=== PATIENT | female | born 1995 | race Caucasian/White ===

== ENCOUNTER 2018-06-25 15:31 | Emergency (ER) | payer OTHER ==
[2018-06-25 15:48] VITALS: BP 137/71
--- NOTE | 2018-06-25 16:34 | ER Document Report ---
ED Medical Screen (RME) - General Chief Complaint: Vaginal Bleeding Stated Complaint: CRAMPING/VAGINAL BLEEDING Time Seen by Provider: 06/25/18 16:28 Primary Care Provider: SAMMIE GOMES PA [Primary Care Provider] - Follow up as needed Mode of Arrival: Ambulatory Information source: Patient Notes: Patient is an otherwise healthy 22-year-old female presenting to the emergency department with complaints of vaginal bleeding that started yesterday. Patient reports her last normal period was on 05/20/18, states that she has taken several tests thinking she may be however they have all been negative. Patient reports that she has been having very heavy bleeding and passing blood clots. Patient denies any fever, reports mild nausea without vo miting or diarrhea. Patient reports earlier this morning she went through 6 tampons and 3 hours however she states the bleeding as subsided. Exam: Abdomen soft, nontender. Patient alert, oriented, answering all questions appropriately. I have greeted and performed a rapid initial assessment of this patient. A comprehensive ED assessment and evaluation of the patient, analysis of test results and completion of the medical decision making process will be conducted by additional ED providers. Dictation of this chart was performed using voice recognition software; therefore, there may be some unintended grammatical errors. TRAVEL OUTSIDE OF THE [place] IN LAST 30 DAYS: No - Related Data Allergies/Adverse Reactions: No Known Allergies Allergy (Unverified 06/25/18 15:38) Physical Exam - Vital signs Vitals: Temp Pulse Resp BP Pulse Ox 98.7 F 69 16 137/71 H 99 06/25/18 15:46 06/25/18 15:46 06/25/18 15:46 06/25/18 15:46 06/25/18 15:46 Course - Vital Signs Vital signs: Temp Pulse Resp BP Pulse Ox 98.7 F 69 16 137/71 H 99 06/25/18 15:46 06/25/18 15:46 06/25/18 15:46 06/25/18 15:46 06/25/18 15:46 Doctor's Discharge - Discharge Referrals: SAMMIE GOMES PA [Primary Care Provider] - Follow up as needed
[2018-06-25 16:56] LABS: ABSOLUTE BASOPHILS # (AUTO) 0.1 10^3/uL (0.0-0.2); ABSOLUTE EOSINOPHILS # (AUTO) 0.3 10^3/uL (0.0-0.6); ABSOLUTE LYMPHOCYTES (AUTO) 2.1 10^3/uL (0.5-4.7); ABSOLUTE MONOCYTES (AUTO) 0.4 10^3/uL (0.1-1.4); EOSINOPHILS % (AUTO) 5.4 % (0-6); HEMATOCRIT 39.2 % (36.0-47.0); HEMOGLOBIN 13.8 g/dL (12.0-15.5); LYMPHOCYTES % (AUTO) 35.9 % (13-45); MEAN CORPUSCULAR HEMOGLOBIN 33.3 pg (27.0-33.4); MEAN CORPUSCULAR HGB CONC 35.3 g/dL (32.0-36.0); MEAN CORPUSCULAR VOLUME 94 fl (80-97); MONOCYTES % (AUTO) 6.6 % (3-13); PLATELET COUNT 294 10^3/uL (150-450); RED BLOOD COUNT 4.16 10^6/uL (3.72-5.28); RED CELL DISTRIBUTION WIDTH 12.2 % (11.5-14.0); SEGMENTED NEUTROPHILS % (AUTO) 51.1 % (42-78); TOTAL CELLS COUNTED % (AUTO) 100 %; WHITE BLOOD COUNT 5.9 10^3/uL (4.0-10.5)
--- NOTE | 2018-06-25 18:34 | ER Document Report ---
ED General - General Chief Complaint: Vaginal Bleeding Stated Complaint: CRAMPING/VAGINAL BLEEDING Time Seen by Provider: 06/25/18 16:28 Primary Care Provider: SAMMIE GOMES PA [Primary Care Provider] - Follow up as needed Mode of Arrival: Ambulatory Information source: Patient TRAVEL OUTSIDE OF THE [place] IN LAST 30 DAYS: No - HPI Patient complains to provider of: Heavier than normal vaginal bleeding during period. Onset: This morning Onset/Duration: Sudden Severity: Severe Pain Level: 4 Associated symptoms: None Exacerbated by: Denies Relieved by: Denies Similar symptoms previously: No Recently seen / treated by doctor: No Notes: 22-year-old female with history of PCOS here with dysfunctional bleeding with her normal menses. States clots are the biggest she is ever seen and the cramping is way out of proportion to her norm. test is negative. - Related Data Allergies/Adverse Reactions: No Known Allergies Allergy (Unverified 06/25/18 15:38) Past Medical History - General Information source: Patient Last Menstrual Period: end april - Social History Smoking Status: Current Every Day Smoker Frequency of alcohol use: Occasional Drug Abuse: None Family History: Reviewed & Not Pertinent Patient has suicidal ideation: No Patient has homicidal ideation: No Renal/ Medical History: Denies: Hx Peritoneal Dialysis Review of Systems - Review of Systems Notes: Constitutional: No fevers. No chills. EENT: No eye redness. No eye pain. No ear pain. No sore throat. Cardiovascular: No chest pain. No palpitations. Respiratory: No cough. No shortness of breath. No respiratory distress. Gastrointestinal: No abdominal pain. No nausea, vomiting, or diarrhea. Genitourinary: Positive for vaginal bleeding and pelvic cramping Musculoskeletal: Atraumatic. No swelling. No deformities. Skin: No rash or lesions. Lymphatic: No swollen lymph nodes. Neurologic: No headache. No syncope. Psychiatric: No suicidal or homicidal ideation. Physical Exam - Vital signs Vitals: Temp Pulse Resp BP Pulse Ox 98.7 F 69 16 137/71 H 99 06/25/18 15:46 06/25/18 15:46 06/25/18 15:46 06/25/18 15:46 06/25/18 15:46 - Notes Notes: General: Well-developed, well-nourished. In no acute distress. Non-toxic appearing. Cardiac: Well-perfused. Regular rate and rhythm. No murmurs, rubs, or gallops. Pulmonary: No respiratory distress. No cyanosis. Bilateral lung fiels are clear to auscultation. Abdominal: Non-distended. Non-rigid. Bowels sounds are present in all four quadrants. No guarding or rebound. HEENT: Head is atraumatic. Conjunctivae not reddened. No tearing. PERRL. EOMI. Orbits atraumatic. No periorbital swelling or erythema. Oropharynx is without erythema, swelling, or exudates. Neck: Supple. No adenopathy. No meningismus. Dermatologic: Warm with good turgor. No rash. Atraumatic. Chest: Atraumatic. No chest wall tenderness to palpation. Musculoskeletal: Moves all extremities well. No range of motion deficits. no muscular or joint tenderness. No paraspinal muscle tenderness. no midline spinal tenderness or step-off. Genitourinary: chaperoned by jemima. External genitalia normal. Cervical loss is closed. No evidence of any trauma to the vaginal mucosa. Neurologic: No gross neurologic deficits. Psychiatric: Normal mood. Course - Re-evaluation Re-evalutation: 06/25/18 18:37 H&H is normal. Bleeding appears to have stopped at least temporarily. I called BAR MANAGER Dr. baeza who recommends for the patient to take 2 tabs of her control active tablets twice daily for 5 days. She needs to be followed up if the bleeding persists. - Vital Signs Vital signs: Temp Pulse Resp BP Pulse Ox 98.7 F 69 16 137/71 H 99 06/25/18 15:46 06/25/18 15:46 06/25/18 15:46 06/25/18 15:46 06/25/18 15:46 - Laboratory Result Diagrams: 06/25/18 16:15 Discharge - Discharge Clinical Impression: Dysmenorrhea Condition: Good Disposition: HOME, SELF-CARE Instructions: Dysmenorrhea ([facility]) Additional Instructions: If the bleeding starts heavy again, recommend that you take 2 of your active tablets twice daily for the next 5 days. If the bleeding persists, you need to see your doctor or the specialist. Prescriptions: Naproxen 500 mg PO BID 7 Days #14 tablet Forms: Return to Work Referrals: SAMMIE GOMES PA [Primary Care Provider] - Follow up as needed
[2018-06-25] MEDS ORDERED: NAPROXEN 250 MG TABLET PO ONE (18:36)
== END 2018-06-25 19:30 | disposition home or self-care (01) ==
LOC: ER 15:31
DX: N94.6 Dysmenorrhea, unspecified (principal); E28.2 Polycystic ovarian syndrome; R10.2 Pelvic and perineal pain; F17.200 Nicotine dependence, unspecified, uncomplicated; Z79.3 Long term (current) use of hormonal contraceptives
CPT/HCPCS: 36415; 84703; 85025; 99284